=== PATIENT | male | born 1990 | race Caucasian/White ===

== ENCOUNTER 2021-03-18 14:47 | Emergency (ER) | payer OTHER ==
[~2021-03-18] VITALS: Ht 172.7 cm; Wt 81.4 kg
--- NOTE | 2021-03-18 16:09 | REP ---
INDICATION: injury, pain COMPARISON: None. TECHNIQUE: AP, lateral, bilateral oblique and sunrise views. FINDINGS: The osseous structures and joint spaces are intact and normal. There is no evidence for acute fracture or dislocation. No joint effusion is appreciated. Surrounding soft tissues are unremarkable. No subcutaneous emphysema or radiodense foreign body. IMPRESSION: Normal examination. No acute fracture or dislocation. <Electronically signed by Jovan Morales > 03/18/21 [id number]
[2021-03-18] MEDS ORDERED: IBUPROFEN 800 MG TAB PO ONE (19:10)
[2021-03-18 19:24] VITALS: BP 140/98
== END 2021-03-18 19:50 | disposition home or self-care (01) ==
LOC: M ED 14:47
DX: S83.91XA Sprain of unspecified site of right knee, initial encounter (principal); S80.01XA Contusion of right knee, initial encounter; W18.39XA Other fall on same level, initial encounter; Y92.89 Other specified places as the place of occurrence of the external cause; Y99.0 Civilian activity done for income or pay